=== PATIENT | male | born 1995 | race American Indian/Alaskan Native ===

== ENCOUNTER 2016-09-29 04:09 | Emergency (ER) | payer SELFPAY ==
[2016-09-29 04:20] VITALS: BP 102/67
[2016-09-29] MEDS ORDERED: XYLOCAINE 1% MPF 5 mL INFILTRATI ONE (08:53)
[2016-09-29] MEDS ORDERED: ZITHROMAX PO ONE (08:53)
[2016-09-29] MEDS ORDERED: ROCEPHIN IM ONE (08:53)
--- NOTE | 2016-09-29 08:59 | Emergency Department Report ---
ED Male HPI - General Chief complaint: Urogenital-Male Stated complaint: ABD PAIN/PENILE DISCHARGE Time Seen by Provider: 09/29/16 08:31 Source: patient Mode of arrival: Ambulatory Limitations: No Limitations - History of Present Illness Initial comments: penile discharge green x 3 days last conatact 5 days ago Complaint: penile discharge Onset/Timin -: days(s) Location: penis Radiation: none Severity: moderate Severity scale (0 -10): 5 Quality: burning Consistency: constant Improves with: none Worsens with: urination new sexual partner discharge, dysuria. denies: swelling, mass, rash, urinary retention, blood in urine, fever, nausea/vomiting, incontinence - Related Data Sexually active: Yes Previous Rx's Medication Instructions Recorded Last Taken Type Azithromycin [Zithromax] 500 mg PO QDAY #5 day 04/02/13 Unknown Rx Hycodan 5 ml PO Q6H PRN #120 ml 04/02/13 Unknown Rx RX: predniSONE [Deltasone] 50 mg PO QDAY #5 tab 04/02/13 Unknown Rx Albuterol Sulfate [Ventolin HFA] 2 puff IH Q4H PRN #1 hfa.aer.ad 03/03/14 Unknown Rx RX: ALBUTEROL Inhaler [ProAir HFA 2 puff IH QID PRN #1 inhalation 01/17/15 Unknown Rx Inhaler] RX: predniSONE [Deltasone] 20 mg PO BID #10 tab 01/17/15 Unknown Rx RX: Doxycycline [Vibramycin CAP] 100 mg PO Q12HR #20 capsule 09/29/16 Unknown Rx metroNIDAZOLE [Flagyl] 2,000 mg PO ONCE 1 Days 09/29/16 Unknown Rx Allergies Allergy/AdvReac Type Severity Reaction Status Date / Time shellfish derived Allergy Swelling Verified 04/02/13 20:11 ED Review of Systems ROS: Stated complaint: ABD PAIN/PENILE DISCHARGE Other details as noted in HPI Constitutional: denies: chills, fever Eyes: denies: eye pain, eye discharge, vision change ENT: denies: ear pain, throat pain Respiratory: denies: cough, shortness of breath, wheezing Cardiovascular: denies: chest pain, palpitations Endocrine: no symptoms reported Gastrointestinal: denies: abdominal pain, nausea, diarrhea Genitourinary: urgency, dysuria, frequency, discharge. denies: hematuria, testicular pain, testicular mass Musculoskeletal: denies: back pain, joint swelling, arthralgia Skin: denies: rash, lesions Neurological: denies: headache, weakness, paresthesias Psychiatric: denies: anxiety, depression Hematological/Lymphatic: denies: easy bleeding, easy bruising ED Past Medical Hx - Past Medical History Previous Medical History?: No Hx Asthma: Yes - Surgical History Past Surgical History?: No - Social History Smoking Status: Current Some Day Smoker Substance Use Type: None - Medications Home Medications: Home Medications Medication Instructions Recorded Confirmed Last Taken Type Azithromycin [Zithromax] 500 mg PO QDAY #5 day 04/02/13 Unknown Rx Hycodan 5 ml PO Q6H PRN #120 ml 04/02/13 Unknown Rx RX: predniSONE [Deltasone] 50 mg PO QDAY #5 tab 04/02/13 Unknown Rx Albuterol Sulfate [Ventolin HFA] 2 puff IH Q4H PRN #1 hfa.aer.ad 03/03/14 Unknown Rx RX: ALBUTEROL Inhaler [ProAir HFA 2 puff IH QID PRN #1 inhalation 01/17/15 Unknown Rx Inhaler] RX: predniSONE [Deltasone] 20 mg PO BID #10 tab 01/17/15 Unknown Rx RX: Doxycycline [Vibramycin CAP] 100 mg PO Q12HR #20 capsule 09/29/16 Unknown Rx metroNIDAZOLE [Flagyl] 2,000 mg PO ONCE 1 Days 09/29/16 Unknown Rx ED Physical Exam - General Limitations: No Limitations General appearance: alert, in no apparent distress - Head Head exam: Present: atraumatic, normocephalic - Eye Eye exam: Present: normal appearance - ENT ENT exam: Present: mucous membranes moist - Neck Neck exam: Present: normal inspection - Respiratory Respiratory exam: Present: normal lung sounds bilaterally. Absent: respiratory distress - Cardiovascular Cardiovascular Exam: Present: regular rate, normal rhythm. Absent: systolic murmur, diastolic murmur, rubs, gallop - GI/Abdominal GI/Abdominal exam: Present: soft, normal bowel sounds - Rectal Rectal exam: Present: deferred - exam: Present: urethral discharge, circumcision. Absent: testicular tenderness, scrotal swelling, vertical testicular lie External exam: Present: normal external exam. Absent: erythema, swelling, lesions, lacerations, ecchymosis, bleeding - Extremities Exam Extremities exam: Present: normal inspection - Back Exam Back exam: Present: normal inspection - Neurological Exam Neurological exam: Present: alert, oriented X3 - Psychiatric Psychiatric exam: Present: normal affect, normal mood - Skin Skin exam: Present: warm, dry, intact, normal color. Absent: rash ED Course Vital Signs 09/29/16 04:17 Temperature 97.7 F Pulse Rate 65 Respiratory 20 Rate Blood Pressure 102/67 O2 Sat by Pulse 98 Oximetry ED Medical Decision Making - Medical Decision Making pt is a 21 y/o aam s/p std exposure endorse unprotected sex 5 days ago , dysuria frequency , urgency , green discharge started 3 days ago , exacerbated by urination , exam no lesions rash or open sores, noted, green yellow penile discharge no testicular pain or swelling will tx for std exposure, pt counseled on safe sex will follow up with health department for hiv screening, pt verbalized agreement and understanding with discharge plan. Critical care attestation.: If time is entered above; I have spent that time in minutes in the direct care of this critically ill patient, excluding procedure time. ED Disposition Clinical Impression: STD (male) Disposition: - TO HOME OR SELFCARE Is pt being admited?: No Does the pt Need Aspirin: No Condition: Good Instructions: Sexually Transmitted Diseases (ED) Prescriptions: RX: Doxycycline [Vibramycin CAP] 100 mg PO Q12HR #20 capsule metroNIDAZOLE [Flagyl] 2,000 mg PO ONCE 1 Days Referrals: PRIMARY CARE, [Primary Care Provider] - 3-5 Days Forms: Work/School Release Form(ED) Time of Disposition: 09:01
== END 2016-09-29 09:17 | disposition home or self-care (01) ==
LOC: ED 04:09
DX: A64 Unspecified sexually transmitted disease (principal); J45.909 Unspecified asthma, uncomplicated; Z72.0 Tobacco use; Z91.013 Allergy to seafood
CPT/HCPCS: 96372; 99282; J0696

== ENCOUNTER 2016-10-18 02:31 | Emergency (ER) | payer SELFPAY ==
--- NOTE | 2016-10-18 03:39 | XRay Report ---
FINAL REPORT EXAM: XR ELBOW 3+V RT HISTORY: swelling and pain COMPARISON: None available. FINDINGS: 4 views of right elbow obtained. No joint effusion. Bony structures are intact. Joint spaces are preserved. No acute fracture dislocation. IMPRESSION: No acute bony abnormality.
[2016-10-18] MEDS ORDERED: NORCO 5/325 PO ONE (08:08)
[2016-10-18] MEDS ORDERED: TORADOL IM ONE (08:08)
[2016-10-18] MEDS ORDERED: FLEXERIL PO ONE (08:08)
--- NOTE | 2016-10-18 09:56 | Emergency Department Report ---
Upper Extremity - [facility] Chief Complaint: Extremity Injury, Upper Stated Complaint: R ARM PAIN/POSS DISLOCATION Upper Extremity: Right Elbow Occurred When: Today Mechanism: Hit with Object Severity: mild Symptoms: Yes Pain with Movement, Yes Limited Range of Movement, Yes Swelling, No Deformity, No Numbness, No Weakness, No Bruising/Ecchymosis, No Laceration or Abrasion Other History: 21 year old male presents to ED with right elbow pain after hitting elbow on metal rail. patient has limited ROM due to pain and minimal swelling. patient is stable, neurologically intact and in no acute distress. ED Review of Systems ROS: Stated complaint: R ARM PAIN/POSS DISLOCATION Other details as noted in HPI Constitutional: denies: chills, fever Eyes: denies: eye pain, eye discharge, vision change ENT: denies: ear pain, throat pain Respiratory: denies: cough, shortness of breath, wheezing Cardiovascular: denies: chest pain, palpitations Endocrine: no symptoms reported Gastrointestinal: denies: abdominal pain, nausea, diarrhea Genitourinary: denies: urgency, dysuria Musculoskeletal: joint swelling (right elbow), arthralgia. denies: back pain Skin: denies: rash, lesions Neurological: denies: headache, weakness, paresthesias Psychiatric: denies: anxiety, depression Hematological/Lymphatic: denies: easy bleeding, easy bruising ED Past Medical Hx - Past Medical History Previous Medical History?: Yes Hx Asthma: Yes - Surgical History Past Surgical History?: No - Social History Smoking Status: Never Smoker Substance Use Type: None - Medications Home Medications: Home Medications Medication Instructions Recorded Confirmed Last Taken Type Azithromycin [Zithromax] 500 mg PO QDAY #5 day 04/02/13 Unknown Rx Hycodan 5 ml PO Q6H PRN #120 ml 04/02/13 Unknown Rx predniSONE [Deltasone] 50 mg PO QDAY #5 tab 04/02/13 Unknown Rx Albuterol Sulfate [Ventolin HFA] 2 puff IH Q4H PRN #1 hfa.aer.ad 03/03/14 Unknown Rx ALBUTEROL Inhaler [ProAir HFA 2 puff IH QID PRN #1 inhalation 01/17/15 Unknown Rx Inhaler] predniSONE [Deltasone] 20 mg PO BID #10 tab 01/17/15 Unknown Rx Doxycycline [Vibramycin CAP] 100 mg PO Q12HR #20 capsule 06/29/17 Unknown Rx metroNIDAZOLE [Flagyl] 2,000 mg PO ONCE 1 Days 09/29/16 Unknown Rx Ketorolac [Toradol] 10 mg PO Q6H PRN #20 tablet 10/18/16 Unknown Rx methOCARBAMOL [Robaxin TAB] 500 mg PO TID #30 tab 10/18/16 Unknown Rx Upper Extremity Exam - Exam General: Vital signs noted. No distress. Alert and acting appropriately. Head and Torso: No HEENT Abnormality, No Neck Tenderness, No Chest/Lungs Abnormality, No Abdominal Tenderness, No Back Tenderness Shoulder Exam: Yes Normal Range of Motion in Shoulder, No Shoulder Tenderness, No Clavicle Tenderness, No Shoulder Deformity, No AC Joint Tenderness Arm Exam: No Arm/Humerus Tenderness, No Arm Deformity Elbow: Yes Elbow Tenderness, No Normal Range of Motion in Elbow (limited ROM due to pain), No Elbow Deformity Forearm: No Forearm Tenderness, No Forearm Deformity, No Pain with Pronation, No Pain with Supination Wrist: Yes Normal ROM in Wrist, No Wrist Tenderness, No Wrist Deformity, No Snuffbox Tenderness, No Pain with Axial Thumb Compression Hand: Yes Normal ROM in Digit(s), No Hand Tenderness, No Hand Deformity, No Digit Tenderness, No Digit(s) Deformity, No Tendon Dysfunction CMS Exam: Yes Normal Distal Pulses, Yes Normal Capillary Refill, Yes Normal Distal Sensation, No Broken Skin ED Course Vital Signs 10/18/16 10/18/16 10/18/16 02:35 08:17 08:18 Temperature 98.2 F Pulse Rate 109 H Respiratory 18 16 16 Rate Blood Pressure 96/54 O2 Sat by Pulse 100 Oximetry ED Medical Decision Making - Lab Data Temp Pulse Resp BP Pulse Ox 98.2 F 61 16 126/84 98 10/18/16 02:35 10/18/16 10:02 10/18/16 10:02 10/18/16 10:02 10/18/16 10:02 - Radiology Data Radiology results: report reviewed XR right elbow No acute bony abnormality. - Medical Decision Making 21 year old male presents to ED with right elbow pain. patient has negative imaging study of right elbow. patient has decreased pain after pain medication. patient is stable, neurologically intact and in no acute distress. Critical care attestation.: If time is entered above; I have spent that time in minutes in the direct care of this critically ill patient, excluding procedure time. ED Disposition Clinical Impression: Elbow contusion Qualifiers: Encounter type: initial encounter Laterality: right Qualified Code(s): S50.01XA - Contusion of right elbow, initial encounter Disposition: TO HOME OR SELFCARE Is pt being admited?: No Does the pt Need Aspirin: No Condition: Stable Instructions: Contusion in Adults (ED) Prescriptions: Ketorolac [Toradol] 10 mg PO Q6H PRN #20 tablet PRN Reason: Pain methOCARBAMOL [Robaxin TAB] 500 mg PO TID #30 tab Referrals: PRIMARY CARE, [Primary Care Provider] - 3-5 Days Forms: Work/School Release Form(ED)
[2016-10-18 10:03] VITALS: BP 126/84
== END 2016-10-18 10:02 | disposition home or self-care (01) ==
LOC: ED 02:31
DX: S50.01XA Contusion of right elbow, initial encounter (principal); J45.909 Unspecified asthma, uncomplicated; W22.8XXA Striking against or struck by other objects, initial encounter; Y93.89 Activity, other specified; Y92.89 Other specified places as the place of occurrence of the external cause; Y99.8 Other external cause status
CPT/HCPCS: 73080; 96372; 99283; J1885

== ENCOUNTER 2016-10-29 01:05 | Emergency (ER) | payer SELFPAY ==
[2016-10-29 02:29] VITALS: BP 115/79
[2016-10-29 02:54] LABS: Basophils % (Auto) 0.5 % (0.0-1.8); Eosinophils % (Auto) 1.4 % (0.0-4.3); Hemoglobin 13.3 gm/dl (11.8-15.2); Mean Corpuscular HGB Conc 33 % (32-34); Mean Corpuscular Hemoglobin 28 pg (28-32); Mean Corpuscular Volume 85 fl (84-94); Platelet Count 176 K/mm3 (140-440); Red Blood Count 4.73 M/mm3 (3.65-5.03); Red Cell Distribution Width 14.6 % (13.2-15.2); White Blood Count 5.8 K/mm3 (4.5-11.0)
[2016-10-29 03:10] LABS: Alanine Aminotransferase 13 units/L (7-56); Albumin 4.4 g/dL (3.9-5); Albumin/Globulin Ratio 1.5 %; Alkaline Phosphatase 99 units/L (35-129); Anion Gap 19 mmol/L; Blood Urea Nitrogen 12 mg/dL (9-20); Carbon Dioxide 24 mmol/L (22-30); Chloride 106.6 mmol/L (98-107); Glucose 90 mg/dL (75-100); Lipase 30 units/L (13-60); Potassium 3.9 mmol/L (3.6-5.0); Sodium 146 mmol/L (137-145); Total Protein 7.3 g/dL (6.3-8.2)
[2016-10-29] MEDS ORDERED: XYLOCAINE 1% MPF 5 mL INFILTRATI ONE (03:30)
[2016-10-29] MEDS ORDERED: ZITHROMAX PO ONE ×2 (03:30→03:41)
[2016-10-29] MEDS ORDERED: ROCEPHIN IM ONE (03:30)
--- NOTE | 2016-10-29 03:37 | Emergency Department Report ---
ED Male HPI - General Chief complaint: Abdominal Pain Stated complaint: PENILE DISCHARGE Source: patient Mode of arrival: Ambulatory Limitations: No Limitations - History of Present Illness Initial comments: SHEENT states he recently tested positive for gonorrhea and was given pills as a treatment but then went to custodial and was not able to finish taking his medication. Patient now states he still has penile discharge and also has right testicular pain and groin pain. Patient also states he has had 1 or 2 episodes of nausea vomiting. MD Complaint: testicle pain, penile discharge, dysuria -: Gradual, week(s) Quality: aching, burning - Related Data Sexually active: Yes Previous Rx's Medication Instructions Recorded Last Taken Type Azithromycin [Zithromax] 500 mg PO QDAY #5 day 04/02/13 Unknown Rx Hycodan 5 ml PO Q6H PRN #120 ml 04/02/13 Unknown Rx predniSONE [Deltasone] 50 mg PO QDAY #5 tab 04/02/13 Unknown Rx Albuterol Sulfate [Ventolin HFA] 2 puff IH Q4H PRN #1 hfa.aer.ad 03/03/14 Unknown Rx ALBUTEROL Inhaler [ProAir HFA 2 puff IH QID PRN #1 inhalation 01/17/15 Unknown Rx Inhaler] predniSONE [Deltasone] 20 mg PO BID #10 tab 01/17/15 Unknown Rx Doxycycline [Vibramycin CAP] 100 mg PO Q12HR #20 capsule 09/29/16 Unknown Rx metroNIDAZOLE [Flagyl] 2,000 mg PO ONCE 1 Days 09/29/16 Unknown Rx Ketorolac [Toradol] 10 mg PO Q6H PRN #20 tablet 10/18/16 Unknown Rx methOCARBAMOL [Robaxin TAB] 500 mg PO TID #30 tab 10/18/16 Unknown Rx Doxycycline [Vibramycin CAP] 100 mg PO Q12HR #20 capsule 10/29/16 Unknown Rx Allergies Allergy/AdvReac Type Severity Reaction Status Date / Time shellfish derived Allergy Swelling Verified 04/02/13 20:11 ED Review of Systems ROS: Stated complaint: PENILE DISCHARGE Other details as noted in HPI Constitutional: denies: chills, fever Eyes: denies: eye pain, eye discharge, vision change ENT: denies: ear pain, throat pain Respiratory: denies: cough, shortness of breath, wheezing Cardiovascular: denies: chest pain, palpitations Endocrine: no symptoms reported Gastrointestinal: denies: abdominal pain, nausea, diarrhea Genitourinary: dysuria, frequency, discharge, testicular pain. denies: urgency , hematuria, testicular mass Musculoskeletal: denies: back pain, joint swelling, arthralgia Skin: denies: rash, lesions, pruritus Neurological: denies: headache, weakness, paresthesias Psychiatric: denies: anxiety, depression Hematological/Lymphatic: denies: easy bleeding, easy bruising ED Past Medical Hx - Past Medical History Previous Medical History?: Yes Hx Asthma: Yes - Surgical History Past Surgical History?: No - Social History Smoking Status: Current Every Day Smoker Substance Use Type: None - Medications Home Medications: Home Medications Medication Instructions Recorded Confirmed Last Taken Type Azithromycin [Zithromax] 500 mg PO QDAY #5 day 04/02/13 Unknown Rx Hycodan 5 ml PO Q6H PRN #120 ml 04/02/13 Unknown Rx predniSONE [Deltasone] 50 mg PO QDAY #5 tab 04/02/13 Unknown Rx Albuterol Sulfate [Ventolin HFA] 2 puff IH Q4H PRN #1 hfa.aer.ad 03/03/14 Unknown Rx ALBUTEROL Inhaler [ProAir HFA 2 puff IH QID PRN #1 inhalation 01/17/15 Unknown Rx Inhaler] predniSONE [Deltasone] 20 mg PO BID #10 tab 01/17/15 Unknown Rx Doxycycline [Vibramycin CAP] 100 mg PO Q12HR #20 capsule 09/29/16 Unknown Rx metroNIDAZOLE [Flagyl] 2,000 mg PO ONCE 1 Days 09/29/16 Unknown Rx Ketorolac [Toradol] 10 mg PO Q6H PRN #20 tablet 10/18/16 Unknown Rx methOCARBAMOL [Robaxin TAB] 500 mg PO TID #30 tab 10/18/16 Unknown Rx Doxycycline [Vibramycin CAP] 100 mg PO Q12HR #20 capsule 10/29/16 Unknown Rx ED Physical Exam - General Limitations: No Limitations General appearance: alert, in no apparent distress - Head Head exam: Present: atraumatic, normocephalic - Eye Eye exam: Present: normal appearance, PERRL, EOMI - ENT ENT exam: Present: mucous membranes moist - Neck Neck exam: Present: normal inspection, tenderness, meningismus - Respiratory Respiratory exam: Present: normal lung sounds bilaterally. Absent: respiratory distress, wheezes, rales, rhonchi - Cardiovascular Cardiovascular Exam: Present: regular rate, normal rhythm. Absent: systolic murmur, diastolic murmur, rubs, gallop - GI/Abdominal GI/Abdominal exam: Present: soft, normal bowel sounds. Absent: distended, tenderness, guarding, rebound, rigid - Rectal Rectal exam: Present: deferred - exam: Present: testicular tenderness, urethral discharge, circumcision, other (right epididymitis). Absent: scrotal swelling, vertical testicular lie External exam: Present: normal external exam. Absent: erythema, swelling, lesions, lacerations, ecchymosis - Extremities Exam Extremities exam: Present: normal inspection - Back Exam Back exam: Present: normal inspection. Absent: CVA tenderness (R), CVA tenderness (L) - Neurological Exam Neurological exam: Present: alert, oriented X3, normal gait - Psychiatric Psychiatric exam: Present: normal affect, normal mood - Skin Skin exam: Present: warm, dry, intact, normal color. Absent: rash ED Course Vital Signs 10/29/16 02:24 Temperature 98.2 F Pulse Rate 76 Respiratory 16 Rate Blood Pressure 115/79 O2 Sat by Pulse 98 Oximetry ED Medical Decision Making - Lab Data Result diagrams: 10/29/16 02:31 10/29/16 02:31 Critical care attestation.: If time is entered above; I have spent that time in minutes in the direct care of this critically ill patient, excluding procedure time. ED Disposition Clinical Impression: Urethritis, Epididymitis Disposition: DC-01 TO HOME OR SELFCARE Is pt being admited?: No Condition: Stable Instructions: Nonspecific Urethritis in Men (ED), Epididymitis (ED) Prescriptions: Doxycycline [Vibramycin CAP] 100 mg PO Q12HR #20 capsule Forms: STI Treatment and Prevention
[2016-10-29 04:09] LABS: Bilirubin,Urine NEG (Negative); Blood,Urine NEG (Negative); Ketones,Urine TR mg/dL (Negative); Leukocyte Esterase,Urine MOD (Negative); Mucus,Urine 2+ /HPF; Nitrite,Urine NEG (Negative)
== END 2016-10-29 04:00 | disposition home or self-care (01) ==
LOC: ED 01:05
DX: N34.2 Other urethritis (principal); N45.1 Epididymitis; J45.909 Unspecified asthma, uncomplicated; F17.200 Nicotine dependence, unspecified, uncomplicated; Z91.013 Allergy to seafood
CPT/HCPCS: 36415; 80053; 81001; 83690; 85025; 96372; 99283; J0696

== ENCOUNTER 2018-08-26 13:41 | Emergency (ER) | payer SELFPAY ==
[2018-08-26] MEDS ORDERED: BOOSTRIX IM ONE (13:52)
[2018-08-26 13:53] VITALS: BP 111/57
--- NOTE | 2018-08-26 13:54 | Emergency Department Report ---
Chief Complaint: Animal Bite Stated Complaint: DOG BITE UPPER R CHEST Time Seen by Provider: 08/26/18 13:50 - HPI History of Present Illness: This is a 23 y.o. M. that presents to the ER with a dog bite to right chest. Patient states a friend dog bite him when he tried to walk around the other dog in the house on yesterday. Tetanus not up to date. - Exam Vital Signs: Vital Signs 08/26/18 13:51 Temperature 97.8 F Pulse Rate 115 H Respiratory 18 Rate Blood Pressure 111/57 O2 Sat by Pulse 98 Oximetry MSE screening note: Focused history and physical exam performed. Due to findings the following was ordered: ACC for further evaluation. ED Disposition for MSE Condition: Stable
--- NOTE | 2018-08-26 15:06 | Emergency Department Report ---
ED Animal Bite HPI - General Chief Complaint: Animal Bite Stated Complaint: DOG BITE UPPER R CHEST Time Seen by Provider: 08/26/18 13:50 Source: patient Mode of arrival: Ambulatory Limitations: No Limitations - History of Present Illness Initial Comments: Patient is a 23-year-old [place] male who was bitten by dog in the right upper chest prior to arrival. Patient was trying to help break up a dogfight. This is the dog is known to the patient and is his friend's dog. Dog is healthy. Patient was bitten in the right chest states that the pain as a 7 out of 10 in severity and is aching throbbing and burning. Patient has no injuries at this time. MD Complaint: animal bite - Related Data Previous Rx's Medication Instructions Recorded Last Taken Type Azithromycin [Zithromax] 500 mg PO QDAY #5 day 04/02/13 Unknown Rx Hycodan 5 ml PO Q6H PRN #120 ml 04/02/13 Unknown Rx predniSONE [Deltasone] 50 mg PO QDAY #5 tab 04/02/13 Unknown Rx Albuterol Sulfate [Ventolin HFA] 2 puff IH Q4H PRN #1 hfa.aer.ad 03/03/14 Unknown Rx ALBUTEROL Inhaler (OR & NICU) 2 puff IH QID PRN #1 inhalation 01/17/15 Unknown Rx [ProAir HFA Inhaler] predniSONE [Deltasone] 20 mg PO BID #10 tab 01/17/15 Unknown Rx DOXYCYCLINE Hyclate [Vibramycin 100 mg PO Q12HR #20 capsule 09/29/16 Unknown Rx CAP] metroNIDAZOLE [Flagyl] 2,000 mg PO ONCE 1 Days tab 09/29/16 Unknown Rx Ketorolac [Toradol] 10 mg PO Q6H PRN #20 tablet 10/18/16 Unknown Rx methOCARBAMOL [Robaxin TAB] 500 mg PO TID #30 tab 10/18/16 Unknown Rx DOXYCYCLINE Hyclate [Vibramycin 100 mg PO Q12HR #20 capsule 10/29/16 Unknown Rx CAP] Amoxicillin/Potassium Clav 1 each PO BID #14 tablet 08/26/18 Unknown Rx [Augmentin 875-125 Tablet] Ibuprofen [Motrin 800 MG tab] 800 mg PO Q8HR PRN #10 tablet 08/26/18 Unknown Rx traMADol [Ultram] 50 mg PO Q6HR PRN #10 tablet 08/26/18 Unknown Rx Allergies Allergy/AdvReac Type Severity Reaction Status Date / Time shellfish derived Allergy Swelling Verified 04/02/13 20:11 ED Review of Systems ROS: Stated complaint: DOG BITE UPPER R CHEST Other details as noted in HPI Comment: All other systems reviewed and negative ED Past Medical Hx - Past Medical History Previous Medical History?: Yes Hx Asthma: Yes - Surgical History Past Surgical History?: No - Social History Smoking Status: Current Every Day Smoker Substance Use Type: Alcohol - Medications Home Medications: Home Medications Medication Instructions Recorded Confirmed Last Taken Type Azithromycin [Zithromax] 500 mg PO QDAY #5 day 04/02/13 Unknown Rx Hycodan 5 ml PO Q6H PRN #120 ml 04/02/13 Unknown Rx predniSONE [Deltasone] 50 mg PO QDAY #5 tab 04/02/13 Unknown Rx Albuterol Sulfate [Ventolin HFA] 2 puff IH Q4H PRN #1 hfa.aer.ad 03/03/14 Unknown Rx ALBUTEROL Inhaler (OR & NICU) 2 puff IH QID PRN #1 inhalation 01/17/15 Unknown Rx [ProAir HFA Inhaler] predniSONE [Deltasone] 20 mg PO BID #10 tab 01/17/15 Unknown Rx DOXYCYCLINE Hyclate [Vibramycin 100 mg PO Q12HR #20 capsule 09/29/16 Unknown Rx CAP] metroNIDAZOLE [Flagyl] 2,000 mg PO ONCE 1 Days tab 09/29/16 Unknown Rx Ketorolac [Toradol] 10 mg PO Q6H PRN #20 tablet 10/18/16 Unknown Rx methOCARBAMOL [Robaxin TAB] 500 mg PO TID #30 tab 10/18/16 Unknown Rx DOXYCYCLINE Hyclate [Vibramycin 100 mg PO Q12HR #20 capsule 10/29/16 Unknown Rx CAP] Amoxicillin/Potassium Clav 1 each PO BID #14 tablet 08/26/18 Unknown Rx [Augmentin 875-125 Tablet] Ibuprofen [Motrin 800 MG tab] 800 mg PO Q8HR PRN #10 tablet 08/26/18 Unknown Rx traMADol [Ultram] 50 mg PO Q6HR PRN #10 tablet 08/26/18 Unknown Rx ED Physical Exam - General Limitations: No Limitations General appearance: alert, in no apparent distress - Head Head exam: Present: atraumatic, normocephalic - Eye Eye exam: Present: normal appearance - ENT ENT exam: Present: mucous membranes moist - Neck Neck exam: Present: normal inspection - Respiratory Respiratory exam: Present: normal lung sounds bilaterally. Absent: respiratory distress - Cardiovascular Cardiovascular Exam: Present: regular rate, normal rhythm. Absent: systolic murmur, diastolic murmur, rubs, gallop - GI/Abdominal GI/Abdominal exam: Present: soft, normal bowel sounds - Rectal Rectal exam: Present: deferred - Extremities Exam Extremities exam: Present: normal inspection - Back Exam Back exam: Present: normal inspection - Neurological Exam Neurological exam: Present: alert, oriented X3 - Psychiatric Psychiatric exam: Present: normal affect, normal mood - Skin Skin exam: Present: warm, dry, intact, normal color, other (abrasion to right chest with superficial breaks in the skin on periphery). Absent: rash ED Course Vital Signs 08/26/18 13:51 Temperature 97.8 F Pulse Rate 115 H Respiratory 18 Rate Blood Pressure 111/57 O2 Sat by Pulse 98 Oximetry - Reevaluation(s) Reevaluation #1: 08/26/18 15:04 Given a tetanus shot and be given Augmentin. Critical care attestation.: If time is entered above; I have spent that time in minutes in the direct care of this critically ill patient, excluding procedure time. ED Disposition Clinical Impression: Dog bite Qualifiers: Encounter type: initial encounter Qualified Code(s): W54.0XXA - Bitten by dog, initial encounter Disposition: DC-01 TO HOME OR SELFCARE Is pt being admited?: No Does the pt Need Aspirin: No Condition: Stable Instructions: Animal Bite (ED) Referrals: CRISSY GOFF MD [Primary Care Provider] - 3-5 Days Time of Disposition: 15:06
[2018-08-26] MEDS ORDERED: AUGMENTIN 875 MG PO ONE (15:08)
[2018-08-26] MEDS ORDERED: IBUPROFEN PO ONE (15:08)
== END 2018-08-26 15:15 | disposition home or self-care (01) ==
LOC: ED 13:41
DX: S21.159A Open bite of unspecified front wall of thorax without penetration into thoracic cavity, initial encounter (principal); J45.909 Unspecified asthma, uncomplicated; F17.200 Nicotine dependence, unspecified, uncomplicated; Z79.899 Other long term (current) drug therapy; Z91.013 Allergy to seafood; W54.0XXA Bitten by dog, initial encounter; Y93.89 Activity, other specified; Y92.89 Other specified places as the place of occurrence of the external cause; Y99.8 Other external cause status
CPT/HCPCS: 90471; 90715; 99282

== ENCOUNTER 2020-01-30 23:08 | Emergency (ER) | payer SELFPAY ==
[2020-01-31 00:51] VITALS: BP 133/73
== END 2020-01-31 01:25 | disposition left against medical advice (07) ==
LOC: ED 23:08
DX: R36.9 Urethral discharge, unspecified (principal); Z53.21 Procedure and treatment not carried out due to patient leaving prior to being seen by health care provider

== ENCOUNTER 2020-07-05 00:29 | Emergency (ER) | payer SELFPAY ==
[2020-07-05 00:54] VITALS: BP 112/80
[2020-07-05] MEDS ORDERED: ONDANSETRON 4 MG ODT TAB PO ONE (01:14)
[2020-07-05] MEDS ORDERED: HYOSCYAMINE SUBL 0.125 MG TAB SL ONE (01:14)
--- NOTE | 2020-07-05 01:17 | Emergency Department Report ---
ED General Adult HPI - General Chief complaint: Abdominal Pain Stated complaint: EMESIS/DIARRHEA/ABD PAIN Time Seen by Provider: 07/05/20 01:02 Source: patient Mode of arrival: Ambulatory Limitations: No Limitations - History of Present Illness Initial comments: Patient is a 25-year-old male presents emergency room with complaints of diarrhea and abdominal cramping that began yesterday. He states today he began having couple episodes of vomiting. He has associated cough, chills, generalized body aches. 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 He denies any fever, chest pain, shortness of breath. He states he is able to tolerate p.o. intake. Past medical history of asthma. No allergies medications. He states he is a non- smoker, occasional alcohol use. He denies any recent travel or recent antibiotics. He has not been tested for COVID-19. - Related Data Previous Rx's Medication Instructions Recorded Last Taken Type Azithromycin [Zithromax] 500 mg PO QDAY #5 day 04/02/13 Unknown Rx Hycodan 5 ml PO Q6H PRN #120 ml 04/02/13 Unknown Rx predniSONE [Deltasone] 50 mg PO QDAY #5 tab 04/02/13 Unknown Rx Albuterol Sulfate [Ventolin HFA] 2 puff IH Q4H PRN #1 hfa.aer.ad 03/03/14 Unknown Rx Albuterol Mdi (or & Nicu Only) 2 puff IH QID PRN #1 inhalation 01/17/15 Unknown Rx [ProAir HFA Inhaler] predniSONE [Deltasone] 20 mg PO BID #10 tab 01/17/15 Unknown Rx DOXYCYCLINE Hyclate [Vibramycin 100 mg PO Q12HR #20 capsule 09/29/16 Unknown Rx CAP] metroNIDAZOLE [Flagyl] 2,000 mg PO ONCE 1 Days tab 09/29/16 Unknown Rx Ketorolac [Toradol] 10 mg PO Q6H PRN #20 tablet 10/18/16 Unknown Rx methOCARBAMOL [Robaxin TAB] 500 mg PO TID #30 tab 10/18/16 Unknown Rx DOXYCYCLINE Hyclate [Vibramycin 100 mg PO Q12HR #20 capsule 10/29/16 Unknown Rx CAP] Amoxicillin/Potassium Clav 1 each PO BID #14 tablet 08/26/18 Unknown Rx [Augmentin 875-125 Tablet] Ibuprofen [Motrin 800 MG tab] 800 mg PO Q8HR PRN #10 tablet 08/26/18 Unknown Rx traMADoL [Ultram] 50 mg PO Q6HR PRN #10 tablet 08/26/18 Unknown Rx Hyoscyamine Subl [Levsin Sl 0.125 0.125 mg SL Q6HR PRN #7 tab 07/05/20 Unknown Rx TAB] Ondansetron [Zofran Odt] 4 mg PO Q8HR PRN #7 tab.rapdis 07/05/20 Unknown Rx Allergies Allergy/AdvReac Type Severity Reaction Status Date / Time shellfish derived Allergy Swelling Verified 04/02/13 20:11 ED Review of Systems ROS: Stated complaint: EMESIS/DIARRHEA/ABD PAIN Other details as noted in HPI Comment: All other systems reviewed and negative ED Past Medical Hx - Past Medical History Previous Medical History?: Yes Hx Asthma: Yes - Surgical History Past Surgical History?: No - Social History Smoking Status: Never Smoker Substance Use Type: None - Medications Home Medications: Home Medications Medication Instructions Recorded Confirmed Last Taken Type Azithromycin [Zithromax] 500 mg PO QDAY #5 day 04/02/13 Unknown Rx Hycodan 5 ml PO Q6H PRN #120 ml 04/02/13 Unknown Rx predniSONE [Deltasone] 50 mg PO QDAY #5 tab 04/02/13 Unknown Rx Albuterol Sulfate [Ventolin HFA] 2 puff IH Q4H PRN #1 hfa.aer.ad 03/03/14 Unknown Rx Albuterol Mdi (or & Nicu Only) 2 puff IH QID PRN #1 inhalation 01/17/15 Unknown Rx [ProAir HFA Inhaler] predniSONE [Deltasone] 20 mg PO BID #10 tab 01/17/15 Unknown Rx DOXYCYCLINE Hyclate [Vibramycin 100 mg PO Q12HR #20 capsule 09/29/16 Unknown Rx CAP] metroNIDAZOLE [Flagyl] 2,000 mg PO ONCE 1 Days tab 09/29/16 Unknown Rx Ketorolac [Toradol] 10 mg PO Q6H PRN #20 tablet 10/18/16 Unknown Rx methOCARBAMOL [Robaxin TAB] 500 mg PO TID #30 tab 10/18/16 Unknown Rx DOXYCYCLINE Hyclate [Vibramycin 100 mg PO Q12HR #20 capsule 10/29/16 Unknown Rx CAP] Amoxicillin/Potassium Clav 1 each PO BID #14 tablet 08/26/18 Unknown Rx [Augmentin 875-125 Tablet] Ibuprofen [Motrin 800 MG tab] 800 mg PO Q8HR PRN #10 tablet 08/26/18 Unknown Rx traMADoL [Ultram] 50 mg PO Q6HR PRN #10 tablet 08/26/18 Unknown Rx Hyoscyamine Subl [Levsin Sl 0.125 0.125 mg SL Q6HR PRN #7 tab 07/05/20 Unknown Rx TAB] Ondansetron [Zofran Odt] 4 mg PO Q8HR PRN #7 tab.rapdis 07/05/20 Unknown Rx ED Physical Exam - General Limitations: No Limitations General appearance: alert, in no apparent distress - Head Head exam: Present: atraumatic, normocephalic - Eye Eye exam: Present: normal appearance - ENT ENT exam: Present: mucous membranes moist - Respiratory Respiratory exam: Present: normal lung sounds bilaterally. Absent: respiratory distress, wheezes, rales, rhonchi, stridor, chest wall tenderness, accessory muscle use, decreased breath sounds, prolonged expiratory - Cardiovascular Cardiovascular Exam: Present: regular rate, normal rhythm, normal heart sounds. Absent: systolic murmur, diastolic murmur, rubs, gallop - GI/Abdominal GI/Abdominal exam: Present: soft, normal bowel sounds. Absent: distended, tenderness, guarding, rebound, rigid - Neurological Exam Neurological exam: Present: alert, oriented X3 - Psychiatric Psychiatric exam: Present: normal affect, normal mood - Skin Skin exam: Present: warm, dry, intact ED Course Vital Signs 07/05/20 00:52 Temperature 98.4 F Pulse Rate 63 Respiratory 18 Rate Blood Pressure 112/80 O2 Sat by Pulse 98 Oximetry ED Medical Decision Making - Lab Data Result diagrams: 07/05/20 01:00 07/05/20 01:00 Labs 07/05/20 07/05/20 07/05/20 00:56 01:00 01:00 WBC 6.1 RBC 5.08 H Hgb 14.7 Hct 44.1 MCV 87 MCH 29 MCHC 33 RDW 14.3 Plt Count 190 Lymph % (Auto) 45.6 H [place] % (Auto) 7.8 H Eos % (Auto) 1.7 Baso % (Auto) 0.4 Lymph # (Auto) 2.8 [place] # (Auto) 0.5 Eos # (Auto) 0.1 Baso # (Auto) 0.0 Seg Neutrophils % 44.5 Seg Neutrophils # 2.7 Sodium 139 Potassium 4.3 Chloride 103.2 Carbon Dioxide 28 Anion Gap 12 BUN 13 Creatinine 0.9 Estimated GFR > 60 BUN/Creatinine Ratio 14 Glucose 91 Calcium 9.1 Total Bilirubin 0.30 AST 18 ALT 19 Alkaline Phosphatase 105 Total Protein 7.0 Albumin 4.6 Albumin/Globulin Ratio 1.9 Lipase 40 Urine Color Yellow Urine Turbidity Clear Urine pH 5.0 Ur Specific [place] 1.028 Urine Protein <15 mg/dl Urine Glucose (UA) Neg Urine Ketones Neg Urine Blood Neg Urine Nitrite Neg Urine Bilirubin Neg Urine Urobilinogen < 2.0 Ur Leukocyte Esterase Neg Urine WBC (Auto) 1.0 Urine RBC (Auto) 0.0 U Epithel Cells (Auto) < 1.0 Urine Mucus Few - Radiology Data Radiology results: report reviewed Ordering Physician: JHOAN ALEMAN Date of Service: 07/05/20 Procedure(s): XR chest routine 2V Accession Number(s): [id number] cc: JHOAN ALEMAN Fluoro Time In Minutes: CHEST 2 VIEWS INDICATION / CLINICAL INFORMATION: cough. COMPARISON: None available FINDINGS: SUPPORT DEVICES: None. HEART / MEDIASTINUM: No significant abnormality. LUNGS / PLEURA: No significant pulmonary or pleural abnormality. No pneumothorax. ADDITIONAL FINDINGS: No significant additional findings. IMPRESSION: 1. No acute findings. Signer Name: Jaime Lopez MD Signed: 07/05/2020 1:49 AM Workstation Name: [id number] Transcribed By: SS Dictated By: Jaime Lopez MD Electronically Authenticated By: Jaime Lopez MD Signed Date/Time: 07/05/20148 DD/ 7 TD/TT: Print - Medical Decision Making Patient is a 25-year-old male presents emergency room with complaints of diarrhea and abdominal cramping that began yesterday. He states today he began having couple episodes of vomiting. He has associated cough, chills, generalized body aches. 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 He denies any fever, chest pain, shortness of breath. He states he is able to tolerate p.o. intake. Past medical history of asthma. No allergies medications. He states he is a non- smoker, occasional alcohol use. He denies any recent travel or recent antibiotics. He has not been tested for COVID-19. Vitals are normal. No abnormality on physical examination as documented in chart. Labs are normal. UA is within normal limits. Chest x-ray with no acute process. Patient has no clinical signs of dehydration. No clinical signs of bacterial bronchitis. Symptoms likely related to viral illness. Patient has had a sick contact with a COVID-19 positive person, discussed the possibility of COVID-19 with patient, discuss strict return precautions, discussed outpatient testing, discussed self quarantine. Patient was given p.o. medications while in the emergency department and was able to tolerate p.o. intake without difficulty, had no further episodes of vomiting or diarrhea while in the ED. Patient given prescription for Zofran and Levsin. Advised patient Please take medication as prescribed as needed. Please increase your fluid intake over the next several days. May take Tylenol as needed for fever or body aches. May take [id number] cold symptom relief medication such as Mucinex or TheraFlu. Follow-up with a primary care doctor for reexamination. Return to emergency room immediately for any new or worsening symptoms including but not limited to difficulty breathing, shortness of breath, severe chest pain, unable to tolerate by mouth intake, etc. Please self quarantine for 10 days from the onset of your symptoms. Please do not go out in public. If you are around others at home please wear a mask. If you need to cough or sneeze please do so in a napkin and immediately throw it away and immediately wash your hands. Wash your hands frequently. Wipe everything down. Recommend for you to get COVID-19 testing, may have this done at primary care doctor, health department, [facility], etc. Critical care attestation.: If time is entered above; I have spent that time in minutes in the direct care of this critically ill patient, excluding procedure time. ED Disposition Clinical Impression: Viral illness Disposition: DC-01 TO HOME OR SELFCARE Is pt being admited?: No Does the pt Need Aspirin: No Condition: Stable Instructions: COVID-19: How to Protect Yourself and Others - CDC, Viral Illness, Adult, Prevent the Spread of COVID-19 if You Are Sick - [facility] Additional Instructions: Please take medication as prescribed as needed. Please increase your fluid intake over the next several days. May take Tylenol as needed for fever or body aches. May take oeuq-[id number] cold symptom relief medication such as Mucinex or TheraFlu. Follow-up with a primary care doctor for reexamination. Return to emergency room immediately for any new or worsening symptoms including but not limited to difficulty breathing, shortness of breath, severe chest pain, unable to tolerate by mouth intake, etc. Please self quarantine for 10 days from the onset of your symptoms. Please do not go out in public. If you are around others at home please wear a mask. If you need to cough or sneeze please do so in a napkin and immediately throw it away and immediately wash your hands. Wash your hands frequently. Wipe everything down. Recommend for you to get COVID-19 testing, may have this done at primary care doctor, health department, [facility], etc. Prescriptions: Hyoscyamine Subl [Levsin Sl 0.125 TAB] 0.125 mg SL Q6HR PRN #7 tab PRN Reason: abdominal cramping/diarrhea Ondansetron [Zofran Odt] 4 mg PO Q8HR PRN #7 tab.rapdis PRN Reason: vomiting Referrals: [facility] [Provider Group] - 2-3 Days JOSEFINA MCKEON MD [Staff Physician] - 2-3 Days Forms: Work/School Release Form(ED) Time of Disposition: 01:58 Print Language: CHINESE
[2020-07-05 01:19] LABS: Basophils % (Auto) 0.4 % (0.0-1.8); Eosinophils # (Auto) 0.1 K/mm3 (0.0-0.4); Eosinophils % (Auto) 1.7 % (0.0-4.3); Hematocrit 44.1 % (35.5-45.6); Hemoglobin 14.7 gm/dl (11.8-15.2); Lymphocytes # (Auto) 2.8 K/mm3 (1.2-5.4); Lymphocytes % (Auto) 45.6 % (13.4-35.0); Mean Corpuscular HGB Conc 33 % (32-34); Mean Corpuscular Volume 87 fl (84-94); Monocytes # (Auto) 0.5 K/mm3 (0.0-0.8); Monocytes % (Auto) 7.8 % (0.0-7.3); Platelet Count 190 K/mm3 (140-440); Red Blood Count 5.08 M/mm3 (3.65-5.03); Red Cell Distribution Width 14.3 % (13.2-15.2)
[2020-07-05 01:20] LABS: Bilirubin,Urine NEG (Negative); Blood,Urine NEG (Negative); Color,Urine Yellow (Yellow); Mucus,Urine FEW /HPF; Protein,Urine <15 mg/dL mg/dL (Negative); Urobilinogen,Urine < 2.0 mg/dL (<2.0)
[2020-07-05 01:38] LABS: Alanine Aminotransferase 19 units/L (7-56); Albumin 4.6 g/dL (3.9-5); BUN/Creatinine Ratio 14; Blood Urea Nitrogen 13 mg/dL (9-20); Calcium 9.1 mg/dL (8.4-10.2); Hemolysis Index 9
--- NOTE | 2020-07-05 01:54 | XRay Report ---
CHEST 2 VIEWS INDICATION / CLINICAL INFORMATION: cough. COMPARISON: None available FINDINGS: SUPPORT DEVICES: None. HEART / MEDIASTINUM: No significant abnormality. LUNGS / PLEURA: No significant pulmonary or pleural abnormality. No pneumothorax. ADDITIONAL FINDINGS: No significant additional findings. IMPRESSION: 1. No acute findings. Signer Name: Jaime Lopez MD Signed: 07/05/2020 1:49 AM Workstation Name: [id number]
== END 2020-07-05 02:14 | disposition home or self-care (01) ==
LOC: ED 00:29
DX: B34.9 Viral infection, unspecified (principal); J45.909 Unspecified asthma, uncomplicated; Z79.899 Other long term (current) drug therapy; Z91.013 Allergy to seafood
CPT/HCPCS: 36415; 71046; 80053; 81001; 83690; 85025; Q0162